=== PATIENT | female | born 1980 | race Caucasian/White ===

== ENCOUNTER 2016-10-18 21:41 | Emergency (ER) | payer MEDICAID ==
[2016-10-18 22:00] VITALS: BMI 29.2
[2016-10-18 22:02] VITALS: TEMP 98.4
[2016-10-18] MEDS ORDERED: HYDROmorphone 1 MG INJECTION IV ONE ×2 (22:06→23:46)
[2016-10-18] MEDS ORDERED: NS 1,000 ML IV ONE (22:06)
[2016-10-18] MEDS ORDERED: ONDANSETRON HCL 4 MG/2 ML VIAL IV ONE (22:06)
--- NOTE | 2016-10-18 22:09 | EDPRACDOC ---
- General Information Chief Complaint: Abdominal Pain Stated Complaint: EPIGASTRIC PAIN Time Seen by Provider: 10/18/16 22:05 Information Source: Patient Mode Of Arrival: Ambulance Home Medications: Home Medications Desvenlafaxine Succinate [Pristiq] 25 mg PO BID 10/03/13 Cephalexin Monohydrate [Keflex] 500 mg PO Q8H #30 cap 01/21/14 Oxycodone HCl/Acetaminophen [Percocet 5-325 mg Tablet] 1 tab PO Q6H PRN #10 tab 01/21/14 Ciprofloxacin HCl [Cipro] 500 mg PO BID #20 tablet 10/18/16 Pentazocine HCl/Naloxone HCl [Talwin Nx Tablet] 1 each PO Q4 #20 tablet Promethazine [Phenergan] 25 mg PO Q8H PRN #30 tab 10/18/16 Allergies/Adverse Reactions: Allergies Allergy/AdvReac Type Severity Reaction Status Date / Time hydrocodone bitartrate Allergy Severe Hives* Verified 01/20/14 22:44 [From Vicodin] ketorolac tromethamine Allergy Severe hives Verified 01/20/14 22:44 [From Toradol] Penicillins Allergy Severe Hives* Verified 01/20/14 22:44 cephalexin monohydrate Allergy Intermediate Edema-Oral/ Verified 01/20/14 22:44 [From Keflex] Lip propoxyphene napsylate Allergy Intermediate Itching Verified 01/20/14 22:44 [From Darvocet-N 100] tramadol Allergy Intermediate Rash-Genera Verified 01/20/14 22:44 lized - History of Present Illness Onset: 3 days HPI: PATIENT IS AN ALCOHOLIC. DRINKING TONIGHT. DIFFUSE ABDOMINAL PAIN WORSE IN EPIGASTRIC REGION. CURRENTLY ON PROTONIX. PAIN WORSE OVER LAST 3 DAYS. WORSE WITH A DEEP BREATH OR ANY MOVEMENT OF ABDOMEN. HX OF CHOLECYSTECTOMY. NO FEVER. NO N/V/D Pain Location: Reports: Epigastric Pain Context: Reports: Spontaneous Pain Severity: Moderate Pain Quality: Reports: Sharp, Stabbing Pain Radiation: Reports: Back Last Menstrual Period: 1 week : No Adult Abdominal History: Reports: Abdominal Surgery (RACHEL, BLADDER CYST REMOVAL ) Modifying Factors: improves with: Movement Oral Intake: Normal Urinary Output: Normal - Treatment Prior to ED Arrival Reported Medications/Treatment [facility] Treatment BLS IV No ED Past Medical History - History Reviewed Yes Nurses notes reviewed and agree except as marked Travel Outside of [place] in the Last 3 Months?: No - Patient Medical History Respiratory History: Reports: Asthma GI/ History: Reports: Gastroesophageal Reflux Psychological History: Reports: Depression Surgical History: Reports: Cholecystectomy - Social Medical History Smoking Status: Former smoker ETOH: Alcoholic Lives With: Family Lives In: Home EDM Review of Systems - Review of Systems ROS Negative Except as Marked: Yes All systems reviewed and were negative except as marked Constitutional: No Symptoms Reported. negative: Fever, Chills, Weakness, Fatigue, Loss of Appetite Eyes: No Symptoms Reported. negative: Redness, Blurred Vision, Double Vision, Discharge, Pain, Light Sensitive, Photophobia Ears: No Symptoms Reported. negative: Pain, Hearing Loss, Drainage, Ear Pulling Throat: No Symptoms Reported. negative: Pain, Swelling Nose: No Symptoms Reported. negative: Congestion, Bleeding, Discharge, Injection, Swelling, Deformity, Ecchymosis, Tender, Abrasion, Laceration Mouth: No Symptoms Reported. negative: Pain, Drooling Respiratory: No Symptoms Reported. negative: Cough, Brassy Cough, Barky Cough, Shortness of Breath, Wheezing, Hemoptysis Cardiovascular: No Symptoms Reported. negative: Chest Pain, Palpitations, Syncope, Edema, Orthopnea, PND, Skin Mottling, Cyanosis Gastrointestinal: Pain. negative: Constipation, Diarrhea, Formula Intolerance, Melena, Nausea, Vomiting Genitourinary: No Symptoms Reported. negative: Dysuria, Hematuria, Frequency, Discharge, Bleeding, Testicular Pain, Neurological: No Symptoms Reported. negative: Headache, Dizziness, Seizure, Numbness, Weakness, Speech Difficulty, Gait Difficulty Musculoskeletal: No Symptoms Reported. negative: Neck, Chestwall, Ribs, Back, Shoulder, Arm, Elbow, Forearm, Wrist, Hand, Pelvis, Hip, Femur, Knee, Leg, Ankle , Foot Integumentary: No Symptoms Reported. negative: Itching, Rash, Bruising, Wound Allergic/Immunologic: No Symptoms Reported. negative: Hives, Itching Hematologic: No Symptoms Reported. negative: Lymphadenopathy, Easy Bruising, Easy Bleeding Endocrine: No Symptoms Reported. negative: Weight Gain, Weight Loss Psychiatric: No Symptoms Reported. negative: Anxiety, Depression, Hallucinations, Insomnia, Suicidal - Physical Exam Constitutional: Alert (Awake), Distress (MODERATE) Oriented to: Time, Person, Place Last recorded Vital Signs: Last Vital Signs Temp 98.4 F 10/18/16 22:00 Pulse 108 10/18/16 22:23 Resp 20 10/18/16 22:23 BP 114/67 10/18/16 22:23 Pulse Ox 93 10/18/16 22:23 Oxygen Pulse Oxygen Saturation 93 O2 Device Room Air Oxygen Flow Rate Fraction of Inspired Oxygen ( FIO2) - HEENT Head: Normal ( normocephalic) Eye Exam: Normal (PERRL, EOMI, Sclera white) Oropharynx: Normal (Pharynx:Moist without exudate,Gums-no swelling) Tympanic Membrane: Normal ENT EAC: Normal TMJ: Normal Nose: No Symptoms Reported (septum midline) Neck: Normal (FROM, trachea at midline) - Respiratory/Cardiovascular Respiratory: Normal - CTA (BBS clear to auscultation without adventitious sounds ) Cardiovascular: Normal (RRR without murmur, gallop or rub) - GI Auscultation: Normal (NABS) Palpation: Normal (Soft,No rebound or guarding, non distended) Tenderness: Diffuse, Mild, Epigastric Monae's Sign: Negative - Musculoskeletal Back: Normal (Non-Tender) Extremities: Normal (Normal tone, Pulses 2+ No cyanosis or edema, FROM) - Integumentary Skin: Normal, Warm, Dry Lymphatics: Normal (no adenopathy) - Neurologic Memory Impaired: Normal Motor Function: Normal (Normal tone, Pulses 2+ No cyanosis or edema, FROM) Cranial Nerve: Normal (CN II-X11 intact sensation, strength 5/5) Cerebellar: Normal Mood Description: Normal Perception: Normal - Results 10/18/16 22:05 10/18/16 22:05 WBC 7.3 xk/uL (3.8-10.8) 10/18/16 22:05 RBC 5.14 xM/uL (4.20-5.40) 10/18/16 22:05 Hgb 16.1 g/dL (12.0-16.0) H 10/18/16 22:05 Hct 46.3 % (36-47) 10/18/16 22:05 MCV 90 fL (81-99) 10/18/16 22:05 MCH 31.3 pg (27-32) 10/18/16 22:05 MCHC 34.8 g/dl (33-36) 10/18/16 22:05 RDW 14.9 % (11.5-14.5) H 10/18/16 22:05 Plt Count 364 xk/uL (130-400) 10/18/16 22:05 MPV 8.2 fL (7.4-10.4) 10/18/16 22:05 Neut % (Auto) 58.6 % (45-76) 10/18/16 22:05 Lymph % (Auto) 33.5 % (17-44) 10/18/16 22:05 [place] % (Auto) 6.4 % (3-10) 10/18/16 22:05 Eos % (Auto) 0.2 % (0-5) 10/18/16 22:05 Baso % (Auto) 1.3 % (0-2) 10/18/16 22:05 Absolute Neuts (auto) 4.23 xk/uL (1.7-8.2) 10/18/16 22:05 Absolute Lymphs (auto) 2.41 xk/uL (0.65-4.75) 10/18/16 22:05 Sodium 144 mEq/L (137-146) 10/18/16 22:05 Potassium 3.5 mEq/L (3.5-5.1) 10/18/16 22:05 Chloride 105 mEq/L (98-107) 10/18/16 22:05 Carbon Dioxide 21 mMOL/L (22-33) L 10/18/16 22:05 Anion Gap 22 mEq/L (8-16) H 10/18/16 22:05 BUN 4 MG/DL (7-17) L 10/18/16 22:05 Creatinine 0.60 MG/DL (0.52-1.04) 10/18/16 22:05 Estimated GFR (MDRD) > 60 mL/min (>=60) 10/18/16 22:05 Glucose 96 MG/DL (70-99) 10/18/16 22:05 Calculated Osmolality 274 MOs/Kg (270-290) 10/18/16 22:05 Calcium 9.1 MG/DL (8.4-10.2) 10/18/16 22:05 Total Bilirubin 0.8 MG/DL (0.2-1.3) 10/18/16 22:05 AST 24 IU/L (14-36) 10/18/16 22:05 ALT 32 IU/L (9-52) 10/18/16 22:05 Alkaline Phosphatase 83 IU/L (38-126) 10/18/16 22:05 Lactate Dehydrogenase 569 IU/L (313-618) 10/18/16 22:05 Total Protein 7.7 G/DL (6.3-8.2) 10/18/16 22:05 Albumin 4.2 G/DL (3.5-5.0) 10/18/16 22:05 Lipase 40 U/L (23-300) 10/18/16 22:05 Urine Color Yellow 10/18/16 22:20 Urine Clarity Clear 10/18/16 22:20 Urine pH 6.0 (5.0-8.0) 10/18/16 22:20 Ur Specific [place] 1.005 (1.003-1.035) 10/18/16 22:20 Urine Protein Neg (NEG/TRACE) 10/18/16 22:20 Urine Glucose (UA) Neg (NEGATIVE) 10/18/16 22:20 Urine Ketones Neg (NEGATIVE) 10/18/16 22:20 Urine Occult Blood Neg (NEG/TRACE) 10/18/16 22:20 Urine Nitrite Pos (NEGATIVE) H 10/18/16 22:20 Urine Bilirubin Neg (NEGATIVE) 10/18/16 22:20 Urine Urobilinogen <2.0 MG/DL (0-1) 10/18/16 22:20 Ur Leukocyte Esterase Trace (NEGATIVE) H 10/18/16 22:20 Urine RBC 0-2 (0-5) 10/18/16 22:20 Urine WBC 5-10 (0-5) H 10/18/16 22:20 Ur Epithelial Cells 1+ 10/18/16 22:20 Urine Bacteria 4+ (NEG/FEW) H 10/18/16 22:20 Urine Mucus Occ (NEG/OCC) 10/18/16 22:20 Urine Test Neg (NEGATIVE) 10/18/16 22:20 Urine Opiates Screen Neg (NEGATIVE) 10/18/16 22:20 Ur Oxycodone Screen Neg (NEGATIVE) 10/18/16 22:20 Urine Methadone Screen Neg (NEGATIVE) 10/18/16 22:20 Ur Barbiturates Screen Neg (NEGATIVE) 10/18/16 22:20 Ur Tricyclics Screen Neg (NEGATIVE) 10/18/16 22:20 Ur Phencyclidine Scrn Neg (NEGATIVE) 10/18/16 22:20 Ur Amphetamines Screen Neg (NEGATIVE) 10/18/16 22:20 U Methamphetamines Scrn Neg (NEGATIVE) 10/18/16 22:20 Urine MDMA Screen Neg (NEGATIVE) 10/18/16 22:20 U Benzodiazepines Scrn Neg (NEGATIVE) 10/18/16 22:20 Urine Cocaine Screen Neg (NEGATIVE) 10/18/16 22:20 Ur THC Screen *positive* (NEGATIVE) H 10/18/16 22:20 Lab Results 10/18/16 10/18/16 10/18/16 22:20 22:20 22:20 WBC RBC Hgb Hct MCV MCH MCHC RDW Plt Count MPV Neut % (Auto) Lymph % (Auto) [place] % (Auto) Eos % (Auto) Baso % (Auto) Absolute Neuts (auto) Absolute Lymphs (auto) Sodium Potassium Chloride Carbon Dioxide Anion Gap BUN Creatinine Estimated GFR (MDRD) Glucose Calculated Osmolality Calcium Total Bilirubin AST ALT Alkaline Phosphatase Lactate Dehydrogenase Total Protein Albumin Lipase Urine Color Yellow Urine Clarity Clear Urine pH 6.0 Ur Specific [place] 1.005 Urine Protein Neg Urine Glucose (UA) Neg Urine Ketones Neg Urine Occult Blood Neg Urine Nitrite Pos H Urine Bilirubin Neg Urine Urobilinogen <2.0 Ur Leukocyte Esterase Trace H Urine RBC 0-2 Urine WBC 5-10 H Ur Epithelial Cells 1+ Urine Bacteria 4+ H Urine Mucus Occ Urine Test Neg Urine Opiates Screen Neg Ur Oxycodone Screen Neg Urine Methadone Screen Neg Ur Barbiturates Screen Neg Ur Tricyclics Screen Neg Ur Phencyclidine Scrn Neg Ur Amphetamines Screen Neg U Methamphetamines Scrn Neg Urine MDMA Screen Neg U Benzodiazepines Scrn Neg Urine Cocaine Screen Neg Ur THC Screen *positive* H 10/18/16 10/18/16 22:05 22:05 WBC 7.3 RBC 5.14 Hgb 16.1 H Hct 46.3 MCV 90 MCH 31.3 MCHC 34.8 RDW 14.9 H Plt Count 364 MPV 8.2 Neut % (Auto) 58.6 Lymph % (Auto) 33.5 [place] % (Auto) 6.4 Eos % (Auto) 0.2 Baso % (Auto) 1.3 Absolute Neuts (auto) 4.23 Absolute Lymphs (auto) 2.41 Sodium 144 Potassium 3.5 Chloride 105 Carbon Dioxide 21 L Anion Gap 22 H BUN 4 L Creatinine 0.60 Estimated GFR (MDRD) > 60 Glucose 96 Calculated Osmolality 274 Calcium 9.1 Total Bilirubin 0.8 AST 24 ALT 32 Alkaline Phosphatase 83 Lactate Dehydrogenase 569 Total Protein 7.7 Albumin 4.2 Lipase 40 Urine Color Urine Clarity Urine pH Ur Specific [place] Urine Protein Urine Glucose (UA) Urine Ketones Urine Occult Blood Urine Nitrite Urine Bilirubin Urine Urobilinogen Ur Leukocyte Esterase Urine RBC Urine WBC Ur Epithelial Cells Urine Bacteria Urine Mucus Urine Test Urine Opiates Screen Ur Oxycodone Screen Urine Methadone Screen Ur Barbiturates Screen Ur Tricyclics Screen Ur Phencyclidine Scrn Ur Amphetamines Screen U Methamphetamines Scrn Urine MDMA Screen U Benzodiazepines Scrn Urine Cocaine Screen Ur THC Screen Decision Time to Discharge: 23:40 - Departure Yes I personally saw and evaluated the patient. Disposition: Home Condition: Good Final Diagnosis: Chronic pancreatitis Qualifiers: Pancreatitis type: alcohol induced Qualified Code(s): K86.0 - Alcohol-induced chronic pancreatitis UTI (urinary tract infection) Qualifiers: Urinary tract infection type: acute cystitis Hematuria presence: without hematuria Qualified Code(s): N30.00 - Acute cystitis without hematuria Instructions: Acute Abdominal Pain (ED), Urinary Tract Infection in Women (ED) , Dysuria Education/Counseling Given To: Patient, Family Member Education/Counseling Given Regarding: Diagnosis, Treatment, Prognosis, Follow Up Referrals: None,No Provider [Primary Care Provider] - One Week Vasile Denny MD [Staff Physician] - One Week Prescriptions: Ciprofloxacin HCl [Cipro] 500 mg PO BID #20 tablet Pentazocine HCl/Naloxone HCl [Talwin Nx Tablet] 1 each PO Q4 #20 tablet Promethazine [Phenergan] 25 mg PO Q8H PRN #30 tab PRN Reason: Nausea/Vomiting
[2016-10-18 22:12] LABS: AUTOMATED BASOPHIL 1.3 % (0-2); AUTOMATED EOSINOPHIL 0.2 % (0-5); AUTOMATED LYMPH 33.5 % (17-44); AUTOMATED MONOCYTE 6.4 % (3-10); AUTOMATED NEUTROPHIL 58.6 % (45-76); MPV 8.2 fL (7.4-10.4)
[2016-10-18 22:24] VITALS: BP 114/67
[2016-10-18 22:26] LABS: ALL NEG? NO
[2016-10-18 22:27] LABS: BLOOD UREA NITROGEN 4 MG/DL (7-17); CALCIUM 9.1 MG/DL (8.4-10.2); CALCULATED OSMOLALITY 274 MOs/Kg (270-290); CHLORIDE 105 mEq/L (98-107); GLUCOSE 96 MG/DL (70-99); SODIUM LEVEL 144 mEq/L (137-146); TOTAL PROTEIN 7.7 G/DL (6.3-8.2)
[2016-10-18 22:37] LABS: MDMA* NEG (NEGATIVE); METHAMPHETAMINES NEG (NEGATIVE); OXYCODONE NEG (NEGATIVE)
[2016-10-18 22:42] LABS: LEUKOCYTES/URINE TRACE (NEGATIVE); NITRITE/URINE POS (NEGATIVE); RBC/URINE 0-2 (0-5); URINE OCCULT BLOOD NEG (NEG/TRACE)
[2016-10-18] MEDS ORDERED: Levofloxacin 750 mg/150 ml D5W 750 MG/150 ML RTU IV ONE (22:46)
[2016-10-18] MEDS ORDERED: Pharmacy Review for Metformin - IV Contrast Given SCH (23:00)
--- NOTE | 2016-10-18 23:34 | DIRPT ---
CLINICAL DATA: Acute onset of epigastric abdominal pain and nausea. Shortness of breath. Initial encounter. EXAM: CT ABDOMEN AND PELVIS WITH CONTRAST TECHNIQUE: Multidetector CT imaging of the abdomen and pelvis was performed using the standard protocol following bolus administration of intravenous contrast. CONTRAST: 100 mL of Isovue 370 IV contrast COMPARISON: CT of the abdomen and pelvis performed 02/08/2005, and renal ultrasound performed 07/01/2013 FINDINGS: The visualized lung bases are clear. The liver and spleen are unremarkable in appearance. The patient is status post cholecystectomy, with clips noted at the gallbladder fossa. The pancreas and adrenal glands are unremarkable. The kidneys are unremarkable in appearance. There is no evidence of hydronephrosis. No renal or ureteral stones are seen. No perinephric stranding is appreciated. No free fluid is identified. The small bowel is unremarkable in appearance. The stomach is within normal limits. No acute vascular abnormalities are seen. Minimal calcification is noted along the distal abdominal aorta and its branches. The appendix is normal in caliber, without evidence of appendicitis. The colon is unremarkable in appearance. The bladder is mildly distended and grossly unremarkable. The uterus is unremarkable in appearance. The ovaries are relatively symmetric. No suspicious adnexal masses are seen. No inguinal lymphadenopathy is seen. No acute osseous abnormalities are identified. IMPRESSION: No acute abnormality seen within the abdomen or pelvis. Electronically Signed By: Acosta Bansal M.D. On: 10/18/2016 23:32
[2016-10-19] VITALS: PULSE 80
== END 2016-10-19 00:25 | disposition home or self-care (01) ==
LOC: ED 21:41
DX: K86.0 Alcohol-induced chronic pancreatitis (principal); N30.00 Acute cystitis without hematuria
CPT/HCPCS: 36415; 74177; 80053; 80301; 81001; 81025; 83615; 83690; 85025; 96361; 96365; 96375; 99284; A9698; J1170; J1956; J2405